=== PATIENT | male | born 1990 | race Caucasian/White ===

== ENCOUNTER 2022-11-08 20:42 | Emergency (ER) | payer SELFPAY ==
[~2022-11-08] VITALS: Ht 177.8 cm; Wt 77.1 kg
[2022-11-08 21:40] VITALS: BP 125/79; PULSE 81; RESP 18; TEMP 97.2; O2SAT 98
[2022-11-08 22:41] VITALS: BP 125/79; PULSE 81; RESP 18; TEMP 97.2; O2SAT 98
== END 2022-11-08 22:41 ==
LOC: MED 20:42
DX: Z02.89 Encounter for other administrative examinations (principal)
CPT/HCPCS: 99283